=== PATIENT | male | born 1960 | race Caucasian/White ===

== ENCOUNTER 2019-09-07 06:58 | Emergency (ER) | payer OTHER ==
[~2019-09-07] VITALS: Ht 190.5 cm; Wt 128.3 kg
[2019-09-07 07:04] VITALS: BP 140/87
[2019-09-07] MEDS ORDERED: PROPARACAINE OPHTH 0.5%, 15ML ONE (07:15)
[2019-09-07] MEDS ORDERED: FLUORESCEIN OPHTHALMIC 1 MG STRIP ONE (07:15)
== END 2019-09-07 08:24 | disposition home or self-care (01) ==
LOC: ED 07:38
DX: S05.01XA Injury of conjunctiva and corneal abrasion without foreign body, right eye, initial encounter (principal); X58.XXXA Exposure to other specified factors, initial encounter; Y93.89 Activity, other specified; Y92.89 Other specified places as the place of occurrence of the external cause; Y99.8 Other external cause status
CPT/HCPCS: 99283